=== PATIENT | female | born 1970 | race Caucasian/White ===

== ENCOUNTER 2020-10-09 11:36 | Day surgery (SDC) | payer BC, SELFPAY ==
--- NOTE | 2020-10-08 12:45 | P.CONAN_ITS ---
Documented by User: Malinda Hagen 10/08/20 12:47 HPI - Anesthesia Eval Consult details Narrative: 50yo F for Upper Endoscopy ON LICENSE OF [facility] Past Medical History Medical History GERD (gastroesophageal reflux disease) Tubular adenoma Surgical History Surgical History H/O basal cell carcinoma excision Hx of bilateral breast reduction surgery Hx of colonoscopy Hx of tonsillectomy Social History Social History Patient Tobacco Use Status: Never used Tobacco Use of substances other than those prescribed or required for medical reasons: No Are you DNR?: No Advance Directives: No Advance Directives Information Provided: Yes Meds Allergies Allergy/AdvReac Type Severity Reaction Status Date / Time No Known Allergies Allergy Verified 10/09/20 11:45 Home Medications Medication Instructions Recorded Confirmed Last Taken Type famotidine 20 mg PO DAILY 10/09/20 10/09/20 Unknown History pantoprazole 1 tab PO DAILY 10/09/20 10/09/20 Unknown History Exam Exam Date and Time: October 08, 2020 1245 Assessment and Plan Assessment Anesthesia Assessment: Chart Reviewed Documented by User: Brielle Travis 10/09/20 12:13 ON LICENSE OF [facility] Past Medical History Medical History GERD (gastroesophageal reflux disease) Tubular adenoma Surgical History Surgical History H/O basal cell carcinoma excision Hx of bilateral breast reduction surgery Hx of colonoscopy Hx of tonsillectomy Social History Social History Patient Tobacco Use Status: Never used Tobacco Use of substances other than those prescribed or required for medical reasons: No Are you DNR?: No Advance Directives: No Advance Directives Information Provided: Yes Meds Allergies Allergy/AdvReac Type Severity Reaction Status Date / Time No Known Allergies Allergy Verified 10/09/20 11:45 Home Medications Medication Instructions Recorded Confirmed Last Taken Type famotidine 20 mg PO DAILY 10/09/20 10/09/20 Unknown History pantoprazole 1 tab PO DAILY 10/09/20 10/09/20 Unknown History Exam Airway Mallampati Class: II TM Dist: >3cm Neck ROM: Full Assessment and Plan Assessment Anesthesia Assessment: Anesthesia Plan Discussed and Chart Reviewed Final Anesthetic Review NPO: Yes ASA Class: II Final Preanesthetic Review: No Changes in Pt Med Stat, Meds/Allgs Chart Reviewed, Consent Obtained/Reviewed and Anes Risks/Benef Reviewed Patient Risk: Low Procedure Risk: Low Assessment/Block/Sedation in SS: Assess/Block/Sedation-SS Anesthetic Plan Anesthetic Plan: MAC: Disposition: Standard PACU
[2020-10-09 11:44] VITALS: BMI 30.1
[2020-10-09 11:57] VITALS: BP 124/83; PULSE 79; RESP 16; TEMP 36.7; O2SAT 98
[2020-10-09] MEDS: Lactated Ringers 1,000 ML 100 ML IVCONT (12:04)
--- NOTE | 2020-10-09 12:38 | P.CONAN_ITS ---
[facility] Past Medical History Medical History GERD (gastroesophageal reflux disease) Tubular adenoma Surgical History Surgical History H/O basal cell carcinoma excision Hx of bilateral breast reduction surgery Hx of colonoscopy Hx of tonsillectomy Social History Social History Patient Tobacco Use Status: Never used Tobacco Use of substances other than those prescribed or required for medical reasons: No Are you DNR?: No Advance Directives: No Advance Directives Information Provided: Yes Meds Allergies Allergy/AdvReac Type Severity Reaction Status Date / Time No Known Allergies Allergy Verified 10/09/20 11:45 Active Medications: Current Medications Generic Name Dose Route Start Last Admin Trade Name Freq PRN Reason Stop Dose Admin Lactated Ringer's 1,000 mls @ 100 mls/hr 10/09/20 11:45 10/09/20 12:04 Lr IVCONT 100 mls/hr .Q10H ENDY Administration Home Medications Medication Instructions Recorded Confirmed Last Taken Type famotidine 20 mg PO DAILY 10/09/20 10/09/20 Unknown History pantoprazole 1 tab PO DAILY 10/09/20 10/09/20 Unknown History Exam Exam Date and Time: October 09, 2020 1238 Height,Weight and Vital Signs: Height 5 ft 3 in Weight 77.111 kg Last Vital Signs Temp 98.0 F 10/09/20 11:57 Pulse 79 10/09/20 11:57 Resp 16 10/09/20 11:57 BP 124/83 10/09/20 11:57 Pulse Ox 98 10/09/20 11:57 Airway Mallampati Class: II TM Dist: >3cm Neck ROM: Full Assessment and Plan Assessment Anesthesia Assessment: Anesthesia Plan Discussed and Chart Reviewed Final Anesthetic Review NPO: Yes ASA Class: II Final Preanesthetic Review: No Changes in Pt Med Stat, Meds/Allgs Chart Reviewed, Consent Obtained/Reviewed and Anes Risks/Benef Reviewed Patient Risk: Low Procedure Risk: Low Assessment/Block/Sedation in SS: Assess/Block/Sedation-SS Anesthetic Plan Anesthetic Plan: MAC: Disposition: Standard PACU
--- NOTE | 2020-10-09 12:48 | MHC.SHP ---
Pre-Procedural Eval Section A Date of Service: 10/09/20 The patient is an INPATIENT: No Changes since office visit: No Cold of Flu in the past 2 weeks, No New Medical Problems, No Changes in Medication and No Patient answered all questions The History & Physical has been completed within 30 days and I have reviewed it.: Yes Section B Chief Complaint: reflux disease, chest pain Allergies: Allergies Allergy/AdvReac Type Severity Reaction Status Date / Time No Known Allergies Allergy Verified 10/09/20 11:45 Plan I have reviewed the history and physical and performed a pertinent physical examination on my patient. No changes have occurred unless specified.
[2020-10-09 13:12] VITALS: BP 117/68; PULSE 87; RESP 16; TEMP 36.1; O2SAT 97
--- NOTE | 2020-10-09 13:13 | PM.OP ---
Brief Operative Note Date of Service: 10/09/20 Pre-op diagnosis: gerd, chest pain Post-op diagnosis: same (normal) Procedure: egd Surgeon: Rojas Vallecillo Anesthesia: MAC Was an Milling Machine Operator Gear used for this Procedure?: No Estimated blood loss (mL): 5 Pathology: other (biopsies egj,esophagus, antrum) Condition: stable Disposition: PACU
[2020-10-09 13:32] VITALS: BP 115/74; PULSE 83; RESP 16; TEMP 36.1; O2SAT 96
--- NOTE | 2020-10-09 13:32 | OP_ITS ---
SURGEON: Rojas Vallecillo MD INDICATIONS: Gastroesophageal reflux disease and chest pain. PREOPERATIVE DIAGNOSIS: POSTOPERATIVE DIAGNOSIS: PROCEDURE PERFORMED: Upper endoscopy with biopsy. ESTIMATED BLOOD LOSS: COMPLICATIONS: ANESTHESIA: ASSISTANTS: SPECIMENS: MEDICATIONS: Monitored anesthesia care. DESCRIPTION OF PROCEDURE: History and physical performed. The risks and benefits of the procedure were explained to the patient. Informed consent was obtained. The patient was placed in the left lateral decubitus position. The Olympus video gastroscope was introduced into the esophagus, stomach, and duodenum. Examination was performed and the scope was removed. She tolerated the procedure well and was taken to recovery area in stable condition. FINDINGS: ESOPHAGUS: The esophagus was normal. There was no esophagitis. Biopsies were obtained from the EG junction to evaluate for reflux and from the mid esophagus at 25 cm to assess for any evidence of eosinophilic esophagitis. STOMACH: The stomach was normal. Antral biopsies were obtained to rule out H pylori. DUODENUM: The bulb and second portion were normal. IMPRESSION: Normal upper endoscopy. RECOMMENDATION: Follow up the biopsy results. MD NALLELY Padron/MODL / [id number]
== END 2020-10-09 14:00 | disposition home or self-care (01) ==
PROVIDERS: PCP Physician Assistant; Visit Provider Internal Medicine Gastroenterology
PROC: 0DJ08ZZ Inspection of Upper Intestinal Tract, Via Natural or Artificial Opening Endoscopic (ICD-10-PCS; CPT 43235; principal; 2020-10-09 12:40)
DX: K21.9 Gastro-esophageal reflux disease without esophagitis (principal); R07.89 Other chest pain; Z79.899 Other long term (current) drug therapy
CPT/HCPCS: 43239; 88305; 88342